=== PATIENT | male | born 1985 | race American Indian/Alaskan Native ===

== ENCOUNTER 2021-10-04 21:15 | Emergency (ER) | payer OTHER ==
--- NOTE | 2021-10-05 01:24 | Emergency Department Report ---
ED General Adult HPI - General Chief complaint: Seizure Stated complaint: SEIZURES Time Seen by Provider: 10/05/21 01:01 Source: patient Mode of arrival: Ambulatory Limitations: No Limitations - History of Present Illness Initial comments: Patient 35-year-old male with history of depression and seizures. States that symptoms were previously treated by Lexapro 10 mg daily. However primary care has changed his prescription to Ecitalopram states he had a T prolonged seizure today. Patient denies loss of bowel or bladder however he now describes a pun cture to the tongue upon awakening. Patient states this is usual symptom and evidence of seizure in the past. Patient requested prescription for Lexapro and D/C of ecitalopram. Patient states he called current provider however cannot get appointment until November 02. Patient can concern for having more seizures. Patient denies aura at this time there is no fevers no chills no dizziness no lightheadedness. Is been no nausea or vomiting. Patient denies substance smoking. Patient denies SI or HI. Patient denies chest pain. Patient denies other symptoms. - Related Data Previous Rx's Medication Instructions Recorded Last Taken Type Escitalopram [Lexapro] 10 mg PO DAILY #15 tablet 10/05/21 Unknown Rx Allergies Allergy/AdvReac Type Severity Reaction Status Date / Time No Known Allergies Allergy Verified 10/04/21 21:29 ED Review of Systems ROS: Stated complaint: SEIZURES Other details as noted in HPI Constitutional: denies: chills, fever Eyes: denies: eye pain, eye discharge, vision change ENT: denies: ear pain, throat pain Respiratory: denies: cough, shortness of breath, wheezing Cardiovascular: denies: chest pain, palpitations Endocrine: no symptoms reported Gastrointestinal: denies: abdominal pain, nausea, vomiting, diarrhea Genitourinary: denies: urgency, dysuria Musculoskeletal: denies: back pain, joint swelling, arthralgia Skin: denies: rash, lesions Neurological: other (Objective seizure without postictal state without oral). denies: headache, weakness, numbness, paresthesias, confusion, abnormal gait, vertigo Psychiatric: anxiety. denies: depression, auditory hallucinations, visual hallucinations, homicidal thoughts, suicidal thoughts Hematological/Lymphatic: denies: easy bleeding, easy bruising ED Past Medical Hx - Medications Home Medications: Home Medications Medication Instructions Recorded Confirmed Last Taken Type Escitalopram [Lexapro] 10 mg PO DAILY #15 tablet 10/05/21 Unknown Rx ED Physical Exam - General Limitations: No Limitations General appearance: alert, in no apparent distress - Head Head exam: Present: normocephalic, normal inspection - Eye Eye exam: Present: PERRL, EOMI. Absent: conjunctival injection, nystagmus Pupils: Present: normal accommodation - ENT ENT exam: Present: normal orophraynx (Airway is patent no lesions no stridor no swelling), mucous membranes moist - Neck Neck exam: Present: normal inspection, full ROM. Absent: tenderness, meningismus, lymphadenopathy, thyromegaly - Respiratory Respiratory exam: Present: normal lung sounds bilaterally. Absent: respiratory distress, wheezes, stridor, chest wall tenderness - Cardiovascular Cardiovascular Exam: Present: regular rate, normal rhythm, normal heart sounds. Absent: systolic murmur, diastolic murmur, rubs, gallop - GI/Abdominal GI/Abdominal exam: Present: soft, normal bowel sounds. Absent: distended, tenderness, guarding, rebound, rigid, bruit, hernia - Rectal Rectal exam: Present: deferred - External exam: Present: normal external exam - Extremities Exam Extremities exam: Present: normal inspection, full ROM, normal capillary refill. Absent: tenderness - Back Exam Back exam: Present: normal inspection, full ROM. Absent: tenderness, paraspinal tenderness, vertebral tenderness - Neurological Exam Neurological exam: Present: alert, oriented X3, CN II-XII intact, normal gait, reflexes normal. Absent: abnormal gait, motor sensory deficit - Expanded Neurological Exam Expanded Patient oriented to: Present: person, place, time Speech: Present: fluid speech Cranial nerves: EOM's Intact: Normal, Gag Reflex: Normal, Tongue Deviation: Normal, Nystagmus: Normal, Facial Sensation: Normal Cerebellar function: Finger to Nose: Normal Upper motor neuron: Pronator Drift: Normal Motor strength exam: RUE: 5, LUE: 5, RLE: 5, LLE: 5 DTR: ankle (R): 1+, ankle (L): 1+ Best Eye Response (Nataliia): (4) open spontaneously Best Motor Response (Nataliia): (6) obeys commands Best Verbal Response (Nataliia): (5) oriented [place] Total: 15 - Psychiatric Psychiatric exam: Present: normal affect, normal mood, anxious. Absent: depressed, agitated, manic, homicidal ideation, suicidal ideation - Skin Skin exam: Present: warm, dry, intact, normal color. Absent: rash ED Course Vital Signs 10/04/21 21:26 Temperature 98.7 F Pulse Rate 63 Respiratory 18 Rate Blood Pressure 137/82 O2 Sat by Pulse 100 Oximetry ED Medical Decision Making - Lab Data Result diagrams: 10/05/21 01:30 10/05/21 01:30 Labs 10/05/21 10/05/21 10/05/21 01:30 01:30 Unknown WBC 8.3 RBC 4.74 Hgb 14.7 Hct 44.8 MCV 94 MCH 31 MCHC 33 RDW 13.7 Plt Count 271 Lymph % (Auto) 46.1 H [place] % (Auto) 5.5 Eos % (Auto) 2.9 Baso % (Auto) 0.9 Lymph # (Auto) 3.8 [place] # (Auto) 0.5 Eos # (Auto) 0.2 Baso # (Auto) 0.1 Seg Neutrophils % 44.6 Seg Neutrophils # 3.7 Sodium 143 Potassium 4.3 Chloride 106.3 Carbon Dioxide 29 Anion Gap 12 BUN 13 Creatinine 0.9 Estimated GFR > 60 BUN/Creatinine Ratio 14 Glucose 94 Calcium 9.3 Total Bilirubin 0.40 AST 30 ALT 28 Alkaline Phosphatase 97 Total Protein 6.9 Albumin 4.3 Albumin/Globulin Ratio 1.7 Urine RBC (Auto) 1.0 U Epithel Cells (Auto) < 1.0 - Medical Decision Making Neuro exam is unremarkable patient with normal mood and mentation. There are no auras no tics shakes or tremors. Plan prescribed short duration of Lexapro 7- day duration should get patient to follow-up with [facility]. For definitive medication management. Patient verbalized agreement and understanding of same patient DC'd home in stable condition at this time. Critical care attestation.: If time is entered above; I have spent that time in minutes in the direct care of this critically ill patient, excluding procedure time. ED Disposition Clinical Impression: Medication refill, History of seizure Disposition: 01 HOME / SELF CARE / HOMELESS Is pt being admited?: No Does the pt Need Aspirin: No Condition: Stable Instructions: Seizure, Adult, [id number] Additional Instructions: Take brand-name Lexapro as directed. Follow-up with [facility] as scheduled for definitive medication management. Call tomorrow for sooner appointment. Return to emergency department should symptoms worsen. Prescriptions: Escitalopram [Lexapro] 10 mg PO DAILY #15 tablet Referrals: [facility] [Outside] - 3-5 Days Forms: Work/School Release Form(ED) Time of Disposition: 02:20
[2021-10-05 01:50] LABS: Mucus,Urine FEW /HPF
[2021-10-05 01:52] LABS: Basophils # (Auto) 0.1 K/mm3 (0.0-0.1); Basophils % (Auto) 0.9 % (0.0-1.8); Eosinophils # (Auto) 0.2 K/mm3 (0.0-0.4); Eosinophils % (Auto) 2.9 % (0.0-4.3); Hematocrit 44.8 % (35.5-45.6); Hemoglobin 14.7 gm/dl (11.8-15.2); Lymphocytes # (Auto) 3.8 K/mm3 (1.2-5.4); Lymphocytes % (Auto) 46.1 % (13.4-35.0); Mean Corpuscular HGB Conc 33 % (32-34); Mean Corpuscular Volume 94 fl (84-94); Monocytes # (Auto) 0.5 K/mm3 (0.0-0.8); Monocytes % (Auto) 5.5 % (0.0-7.3); Platelet Count 271 K/mm3 (140-440); Red Blood Count 4.74 M/mm3 (3.65-5.03); Red Cell Distribution Width 13.7 % (13.2-15.2)
[2021-10-05 02:06] LABS: Alanine Aminotransferase 28 units/L (7-56); Albumin 4.3 g/dL (3.9-5); BUN/Creatinine Ratio 14; Blood Urea Nitrogen 13 mg/dL (9-20); Calcium 9.3 mg/dL (8.4-10.2); Hemolysis Index 8
[2021-10-05 02:35] LABS: Color,Urine Straw (Yellow)
[2021-10-05 03:30] VITALS: BP 132/80
== END 2021-10-05 02:59 | disposition home or self-care (01) ==
LOC: ED 21:15
DX: R56.9 Unspecified convulsions (principal); Z76.0 Encounter for issue of repeat prescription
CPT/HCPCS: 36415; 80053; 81001; 85025; 87086; 99283